=== PATIENT | female | born 1980 | race Caucasian/White ===

== ENCOUNTER → 2018-04-16 | Outpatient (CLI) | payer BC ==
[2016-06-06 02:10] VITALS: BP 107/63
[~2018-04-16] MED LIST: ACET-704 PO; CEPH500C PO; HYDR-971 PO; IBUP-1060 PO; PNV1TABL25 PO
--- NOTE | 2018-04-16 10:50 | RAD ---
Complete abdominal ultrasound dated 04/16/2018. No comparison available. CLINICAL INDICATION: Upper abdominal pain. FINDINGS: Liver is homogeneous in echogenicity. No focal hepatic mass. Intrahepatic and extra hepatic biliary tree normal in caliber. The common bile duct measures 4 mm. Gallbladder normal in size and echogenicity. No gallbladder wall thickening or pericholecystic fluid. No gallstones are seen. Right kidney measures 12.6 cm in length. Left kidney measures 12.8 cm in length. No hydronephrosis. Spleen is homogeneous in echogenicity and measures 11.6 cm longitudinal dimension. Limited visualized portions of pancreas aorta and IVC unremarkable. No significant ascites. IMPRESSION: Negative abdominal ultrasound. Electronically signed by: Octavio Charles MD (04/16/2018 10:47 AM) [id number]
== END | disposition home or self-care (01) ==
LOC: US 09:10
PROVIDERS: ATTEND Family Medicine
DX: R10.84 Generalized abdominal pain (principal)
CPT/HCPCS: 76700